=== PATIENT | male | born 1950 | race Caucasian/White ===

== ENCOUNTER 2019-10-31 12:53 | Day surgery (SDC) | payer OTHER, SELFPAY ==
--- NOTE | 2019-10-31 | PATH_ITS ---
[facility] Accession Number: [id number] . 01 Material submitted: . PART A: colon - 25CM COLON POLYP PART B: colon - ASCENDING COLON . 02 Diagnosis: A. 25 CM Colon Polyp: Serrated lesion, cannot completely exclude sessile serrated adenoma due to tangential tissue orientation. . B. Ascending Colon: Tubular adenoma. I 11/04/2019 1342 Local . 02 Electronically signed: . Samantha Griffith MD, Pathologist NPI- [id number] . 01 Gross description: . A. Received in formalin, labeled 25 cm colon polyp, and consists of a 0.5 x 0.4 x 0.2 cm gomez-pink fragment of soft tissue, which is entirely submitted in cassette A1. B. Received in formalin, labeled ascending colon polyp, and consists of a 0.5 x 0.4 x 0.2 cm gomez-pink fragment of soft tissue, which is entirely submitted in cassette B1. ([id number]) /MRV 11/01/2019 1329 Local . 02 Pathologist provided ICD-10: K63.5, Z12.11 . 02 CPT . 102554, [id number] Performed at: 01 [facility] [address], [place], [place] [id number] MD Parviz Greene MD Phone: [phone] Performed at: 02 [facility] [address] [place], [place] [id number] MD Patti Weems MD Phone: [phone]
[2019-10-31 13:38] VITALS: BP 161/85; PULSE 85; RESP 17; TEMP 36.6; O2SAT 98; BMI 23.7
[2019-10-31] MEDS: LACTATED RINGERS 1,000 ML 200 ML IV (14:00)
--- NOTE | 2019-10-31 14:40 | PM.HP.1 ---
History of Present Illness History of Present Illness Date Patient Seen: 10/31/19 Time Patient Seen: 14:40 Chief complaint: SDC Narrative: The patient presents for colorectal screening. They had a previous colonoscopy 5 years ago that demonstrated adenomatous polyps.. No personal or family history of colon cancer. On further history denies any recent gastrointestinal symptoms. No nausea, vomiting, abdominal pain, loss of appetite, unexplained weight loss, change in bowel habits, diarrhea, constipation, melena, hematochezia, or bright red blood per rectum. Patient History Surgical History H/O exploratory laparotomy (Inactive) Family & Social History Social History: household members spouse Tobacco & Substance use: Smoking Status Never smoker alcohol intake frequency 0-2 drinks per day Substance Use Type does not use Meds Home Medications and Allergies Home Medications Medication Instructions Recorded Confirmed Type multivitamin 1 tab PO DAILY 10/31/19 10/31/19 History Allergies Allergy/AdvReac Type Severity Reaction Status Date / Time No Known Drug Allergies Allergy Verified 10/31/19 13:35 Review of Systems Review of Systems Narrative: A 10 point review of systems is negative except as noted in the HPI Exam Vital Signs (past 8 hours): - 10/31/19 13:38 Temperature 98 F Pulse Rate 85 Respiratory Rate 17 Blood Pressure 161/85 H Pulse Oximetry 98 Oxygen Delivery Method Room Air Narrative Exam Narrative: General-no acute distress, well nourished HEENT-moist mucous membranes, no scleral icterus Neck-supple, no lymphadenopathy Chest- non labored respirations, clear to auscultation bilaterally Cardiac-regular rate no peripheral edema Abdomen-soft, nontender, non distended Extremities-warm, well perfused Neurological-alert and oriented, no focal deficits Assessment & Plan Assessment and plan (1) Screening for colon cancer: Status: Acute Assessment & Plan narrative: The patient requires colorectal screening and colonoscopy is recommended. Technical details were discussed. Risks, benefits, alternatives explained. Risks including but not limited to myocardial infarction, aspiration, bleeding, pain, missed lesion, incomplete examination, need for further radiographic studies, colonic perforation, and need for major abdominal surgery were discussed. All questions were answered to their satisfaction, and they are in agreement with this plan.
[2019-10-31] MEDS: MIDAZOLAM 5 MG/5 ML VIAL IV (14:54)
[2019-10-31] MEDS: fentaNYL 250 MCG/5 ML INJ IV (14:54)
[2019-10-31] MEDS: ONDANSETRON 4 MG/2 ML INJ IV (15:00)
--- NOTE | 2019-10-31 15:09 | PM.OP.ENDO ---
Operative Date/Time/Diagnoses Date of procedure: 10/31/19 Time of procedure: 15:09 Pre-op diagnosis: Screening colonoscopy Post-op diagnosis: same Procedure & Clinicians Study performed: Colonoscopy Same procedure as scheduled: Yes Indications: 69-year-old male history of adenomatous polyps last colonoscopy 5 years ago presents for routine screening. Surgeon: Jacky Tolbert Procedure Notes SCOAP/Timeout: Performed Procedure in detail: Patient placed in left lateral recumbent position. Time out was performed. Procedural sedation was administered with Versed and Fentanyl. Examination began with a thorough inspection of the perianal area there was no evidence of fissures, fistulae, external hemorrhoids or cutaneous malignancy. The colonoscopy scope was then placed into the rectum the the lumen was insufflated with air. The scope was carefully advanced forward. Ultimately the cecum was intubated and confirmed by identification of the ileocecal valve, and the confluence of the taenia. The scope was then slowly withdrawn examining colon thoroughly in all directions. In the rectum the rectal columns were identified and retroflexion of the scope was performed for inspection of the distal rectum and anal canal. The colonoscopy was notable for the followin. Quality of the preparation-fair 2. Less than 1 cm polyp at 25 cm from the anal verge removed with cold snare. Hemostasis observed 3. Less than 1 cm polyy within the ascending colon removed with Jumbo biopsy forceps. Hemostasis observed. Scope withdrawal time: 7 Sedation minutes: 22 Findings: polyp Specimen(s): other (Ascending colon and 25 cm from anal verge polyps) Complications: none Impression: Polyps Post-procedure Recommendations: Colonscopy in 5 years Disposition: same day surgery
[2019-10-31 15:15] VITALS: BP 166/84; PULSE 70; RESP 14; TEMP 36.7; O2SAT 95
[2019-10-31 15:20] VITALS: BP 150/75; PULSE 69; RESP 18; O2SAT 94
[2019-10-31 15:24] VITALS: BP 133/70; PULSE 78; RESP 19; O2SAT 96
[2019-10-31 15:30] VITALS: BP 130/75; PULSE 74; RESP 16; TEMP 36.3; O2SAT 95
[2019-10-31 15:45] VITALS: BP 136/81; PULSE 63; RESP 16; TEMP 36.4; O2SAT 96
--- NOTE | 2019-10-31 15:54 | SUR.PHASEII ---
Pt up and ambulating, gait steady, getting dressed at bs with no problems. Taking po fluids well. All dc instructions given and pt verbalizes understanding
--- NOTE | 2019-10-31 16:04 | SUR.PHASEII ---
Pt dcd via wc in stable condition. No c/o
== END 2019-10-31 16:05 | disposition home or self-care (01) ==
PROVIDERS: Family Provider Specialist; PCP Family Medicine; Referring Provider Surgery; Visit Provider Surgery
PROC: 0DJD8ZZ Inspection of Lower Intestinal Tract, Via Natural or Artificial Opening Endoscopic (ICD-10-PCS; CPT 45378; principal; 2019-10-31 13:45)
DX: Z12.11 Encounter for screening for malignant neoplasm of colon (principal); Z86.010 Personal history of colon polyps; D12.6 Benign neoplasm of colon, unspecified; D12.2 Benign neoplasm of ascending colon
CPT/HCPCS: 45385; 45380; 99152; J2250; J2405; J3010